=== PATIENT | female | born 1945 | race Caucasian/White ===

== ENCOUNTER 2019-01-09 12:03 | Inpatient (IN) | payer MEDICARE, BC | END 2019-01-12 12:00 | LOC: PAS IN 12:03 → ORTHO 4S 17:30 | PROC: 0SRC0J9 Replacement of Right Knee Joint with Synthetic Substitute, Cemented, Open Approach (ICD-10-PCS; principal; 2019-01-09 13:23) | DX: M17.11 Unilateral primary osteoarthritis, right knee (principal); J45.909 Unspecified asthma, uncomplicated; I10 Essential (primary) hypertension ==

== ENCOUNTER 2019-06-01 05:29 | Inpatient (IN) | payer MEDICARE, BC ==
[2019-05-17 14:19] LABS: BASOPHILS # (AUTO) 0.1 X10'3 (0-0.2); EOSINOPHILS # (AUTO) 0.2 X10'3 (0-0.9); LYMPHOCYTES # (AUTO) 1.1 X10'3 (1.1-4.8); LYMPHOCYTES % (AUTO) 19.9 % (21-51); MEAN CORPUSCULAR HEMOGLOBIN 28.6 PG (27.0-31.0); MEAN CORPUSCULAR HGB CONC 33.3 g/dL (33.0-36.5); MEAN CORPUSCULAR VOLUME 85.7 FL (78-98); MEAN PLATELET VOLUME 7.3 FL (7.4-10.4); MONOCYTES # (AUTO) 0.6 X10'3 (0-0.9); MONOCYTES % (AUTO) 10.7 % (2-12); NEUTROPHILS # (AUTO) 3.7 X10'3 (1.8-7.7); NEUTROPHILS % (AUTO) 65.4 % (42-75); PRE OP HEMATOCRIT 34.4 % (35.0-45.0); PRE OP HEMOGLOBIN 11.5 g/dL (12.0-16.0); PRE OP PLATELET COUNT 311 X10'3 (140-440); RED BLOOD COUNT 4.01 X10'6 (4.20-5.60); RED CELL DISTRIBUTION WIDTH 15.2 % (11.5-14.5)
[2019-05-17 14:33] LABS: PRE OP PROTIME 10.5 SECONDS (9.0-12.0)
[2019-05-17 14:42] LABS: BLOOD UREA NITROGEN 25 MG/DL (7-18); BUN/CREATININE RATIO 25.5 (6.6-38.0); CHLORIDE 95 MMOL/L (99-107); CREATININE 0.98 MG/DL (0.40-0.90); PRE OP ANION GAP 9 (8-16); PRE OP GLUCOSE 92 MG/DL (70-104); PRE OP POTASSIUM 4.8 MMOL/L (3.4-5.1); PRE OP SODIUM 131 MMOL/L (135-145); TOTAL CARBON DIOXIDE 27.4 MMOL/L (24-32)
[2019-05-17 14:43] LABS: ALBUMIN 3.4 G/DL (3.4-5.0); ALBUMIN/GLOBULIN RATIO 1.1 (1.1-1.5); ALKALINE PHOSPHATASE 79 IU/L (46-116); PRE OP ALT 25 U/L (30-65); PRE OP AST 15 U/L (10-37); PRE OP BILIRUB, TOTAL 0.4 MG/DL (0.0-1.0); TOTAL PROTEIN 6.5 G/DL (6.4-8.2); eGFR 56 ML/MIN
[~2019-06-01] VITALS: Ht 162.6 cm; Wt 92.0 kg
[2019-06-01] VITALS (18 sets, daily range): BP systolic 100–150; BP diastolic 39–67
[~2019-06-01 05:29] MED LIST: ALBU8.5H8 INH; ATOR10TA PO; DICL75TA5 PO; ESOM2.5S PO; FEXO180T94 PO; FLUT1DIS4 INH; LEVO75TA7 PO; LISI1TAB28 PO; MONT10TA21 PO
[2019-06-01] MEDS ORDERED: tranexamic acid inj. 1,000 MG in normal saline 100 ML IV ONE (05:30)
[2019-06-01] MEDS ORDERED: vancomycin inj 1,500 MG in normal saline 300ml IV soln IV ONE (05:30)
[2019-06-01] MEDS ORDERED: ringers solution, lacted 1,000 ML IV SCH ×2 (05:30→08:27)
[2019-06-01] MEDS ORDERED: famotidine 20mg tablet PO ONE (05:30)
[2019-06-01] MEDS ORDERED: cefazolin/dext.iso 2gm/50ml 50 ML IV ONE (05:30)
[2019-06-01] MEDS ORDERED: LIDOcaine 1% (10mg/ml) 2ml vial ONE (05:53)
[2019-06-01] MEDS ORDERED: ceFAZolin 1000mg inj ONE (06:34)
[2019-06-01 06:47] LABS: ISTAT CREATININE 1.1 mg/dL (0.6-1.1); ISTAT HGB 12.6 g/dl (12.0-16.0); ISTAT IONIZED CALCIUM 1.23 mmol/L (1.03-1.32); ISTAT K 4.1 mmol/L (3.5-5.1); POC BUN/CREATININE RATIO 29.1 (6.6-38.0)
[2019-06-01] MEDS ORDERED: tetracaine 1% (10mg/ml) pres. free inj. ONE (07:13)
[2019-06-01] MEDS ORDERED: MIDAZolam 1mg/ml 10ml vial ONE (07:16)
[2019-06-01] MEDS ORDERED: fentaNYL/PF 50MCG/1 ML 2ML syringe ONE (07:16)
[2019-06-01] MEDS ORDERED: proCHLORperazine 10 MG/2 ml inj IV PRN (08:30)
[2019-06-01] MEDS ORDERED: meperidine/PF 25mg/ml syringe IV PRN ×3 (08:30)
[2019-06-01] MEDS ORDERED: morphine 4 MG/ML inj SYRINge IV PRN ×2 (08:30)
[2019-06-01] MEDS ORDERED: ondansetron/PF 4mg/2ml inj IV PRN ×2 (08:30→10:15)
[2019-06-01] MEDS ORDERED: propofol inj 20 ML IV ONE ×2 (09:18)
[2019-06-01] MEDS ORDERED: ROPIVAcaine 0.5% (5mg/ml) 30ml vial ONE (09:30)
[2019-06-01] MEDS ORDERED: acetaminophen 325mg tablet PO PRN (10:15)
[2019-06-01] MEDS ORDERED: bisacodyl 10mg suppository rectal RC PRN (10:15)
[2019-06-01] MEDS ORDERED: diphenhydrAMINE 25mg capsule PO PRN ×2 (10:15)
--- NOTE | 2019-06-01 10:17 | NUR ---
Received from OR via , accompanied by Anesthesiologist DR ESCALANTE and report given by Anesthesiolgist. AWAKENS TO VOICE. VITALS STABLE. DRESSING DI. KELLEY PAIN. SENSATION JUST ABOVE THE HIPS/ VARGAS WITH CLEAR URINE.
[2019-06-01] MEDS ORDERED: DICLOFENAC 75 MG PO SCH (10:35)
[2019-06-01] MEDS: ROPIVAcaine 0.2%/PF PAIN PUMP 550 ML IJ SCH (10:43)
--- NOTE | 2019-06-01 11:08 | NUR ---
Patient in room PAS IN 900. I have received report from Oliverio COLVIN and had the opportunity to ask questions and assume patient care.
--- NOTE | 2019-06-01 11:17 | NUR ---
Report called to receiving nurse. Transferred via BED Belongings . Special Issues communicated to receiving nurse. AWAKE AND ORINENTED. VITALS STABLE. DRESSING DI. KELLEY PAIN. TO ORTHO RM 4024A AT THIS TIME.
--- NOTE | 2019-06-01 11:20 | NUR ---
on the floor. normal pulse. post op vitals started. educated on IS device.
[2019-06-01] MEDS: HYDROcodone/acetaminophen 10/325mg tab PO PRN ×3 (12:18→19:10)
[2019-06-01] MEDS: HYDROmorphone inj. 0.5 MG/0.5 ML DISP.SYRIN IV PRN ×2 (13:01→21:24)
[2019-06-01] MEDS: potassium Cl 20mEq in NS 1,000 ML IV SCH ×2 (15:54→23:32)
[2019-06-01] MEDS: ceFAZolin 1GM/D5W- ADD-VANTAGE 50 ML IV SCH ×2 (16:04→23:45)
[2019-06-01] MEDS ORDERED: aspirin 325mg tablet PO SCH (17:30)
[2019-06-01] MEDS: aspirin 81mg tablet.DR PO SCH (17:38)
--- NOTE | 2019-06-01 18:08 | NUR ---
Problems reprioritized. Patient report given, questions answered & plan of care reviewed with Nicolasa RN.
--- NOTE | 2019-06-01 18:20 | NUR ---
Received report from Nick COLVIN. assumed care of patient.
[2019-06-01] MEDS: HYDROchlorothiazide 12.5mg capsule PO SCH (19:11)
[2019-06-01] MEDS ORDERED: vancomycin/NS 1 GM ADD-VANTAGE 250 ML IV SCH (20:00)
[2019-06-01] MEDS: sennosides 8.6mg tablet PO SCH (20:14)
[2019-06-02] MEDS: HYDROcodone/acetaminophen 10/325mg tab PO PRN ×5 (00:51→18:24)
[2019-06-02 02:00] VITALS: BP 116/49
[2019-06-02 06:00] VITALS: BP 127/54
--- NOTE | 2019-06-02 06:10 | NUR ---
Gave report to Nick COLVIN.
--- NOTE | 2019-06-02 06:39 | NUR ---
Patient in room ORTHO 4024. I have received report from Nicolasa COLVIN and had the opportunity to ask questions and assume patient care.
[2019-06-02 06:40] LABS: BASOPHILS % (AUTO) 0.5 % (0-1); EOSINOPHILS % (AUTO) 0.3 % (0-6); HEMATOCRIT 26.5 % (35.0-45.0); HEMOGLOBIN 9.1 g/dl (12.0-16.0); LYMPHOCYTES # (AUTO) 0.8 X10'3 (1.1-4.8); LYMPHOCYTES % (AUTO) 10.5 % (21-51); MEAN CORPUSCULAR HEMOGLOBIN 29.3 PG (27.0-31.0); MEAN CORPUSCULAR HGB CONC 34.3 g/dL (33.0-36.5); MEAN CORPUSCULAR VOLUME 85.3 FL (78-98); MEAN PLATELET VOLUME 7.4 FL (7.4-10.4); MONOCYTES % (AUTO) 13.5 % (2-12); NEUTROPHILS # (AUTO) 5.8 X10'3 (1.8-7.7); NEUTROPHILS % (AUTO) 75.2 % (42-75); PLATELET COUNT 261 X10'3 (140-440); WHITE BLOOD COUNT 7.8 X10'3 (4.5-11.0)
[2019-06-02 06:59] LABS: ALANINE AMINOTRANSFERASE 23 U/L (12-78); ALBUMIN 2.7 G/DL (3.4-5.0); ALBUMIN/GLOBULIN RATIO 0.9 (1.1-1.5); ALKALINE PHOSPHATASE 67 IU/L (46-116); ANION GAP 8 (8-16); ASPARTATE AMINO TRANSFERASE 13 U/L (10-37); BILIRUBIN,TOTAL 0.5 MG/DL (0.1-1.0); BLOOD UREA NITROGEN 14 MG/DL (7-18); BUN/CREATININE RATIO 14.9 (6.6-38.0); CALCIUM 8.8 MG/DL (8.5-10.1); CHLORIDE 102 MMOL/L (99-107); CREATININE 0.94 MG/DL (0.40-0.90); GLUCOSE 115 MG/DL (70-104); POTASSIUM 3.9 MMOL/L (3.5-5.1); SODIUM 137 MMOL/L (135-145); TOTAL CARBON DIOXIDE 26.8 MMOL/L (24-32); TOTAL PROTEIN 5.6 G/DL (6.4-8.2); eGFR 58 ML/MIN
[2019-06-02] MEDS: potassium Cl 20mEq in NS 1,000 ML IV SCH (07:52)
[2019-06-02] MEDS: pantoprazole 40mg Tablet.DR PO SCH (07:53)
[2019-06-02] MEDS: HYDROchlorothiazide 12.5mg capsule PO SCH ×2 (07:53→20:24)
[2019-06-02] MEDS: montelukast 10mg tablet PO SCH (07:53)
[2019-06-02] MEDS: aspirin 81mg tablet.DR PO SCH ×2 (07:53→17:26)
[2019-06-02] MEDS: lisinopril 20mg tablet PO SCH ×2 (07:54→20:24)
[2019-06-02] MEDS: levoTHYROXINE 75mcg tablet PO SCH (07:54)
[2019-06-02 10:00] VITALS: BP 121/53
[2019-06-02] MEDS: magnesium hydroxide 30ml (MOM) UD suspension PO PRN (15:16)
[2019-06-02 18:00] VITALS: BP 121/45
--- NOTE | 2019-06-02 18:06 | NUR ---
Problems reprioritized. Patient report given, questions answered & plan of care reviewed with Nicolasa RN.
--- NOTE | 2019-06-02 18:10 | NUR ---
Received report from Nick COLVIN. assumed care of patient.
[2019-06-02] MEDS: sennosides 8.6mg tablet PO SCH (20:24)
[2019-06-02 22:02] VITALS: BP 124/54
[2019-06-03] MEDS: HYDROcodone/acetaminophen 10/325mg tab PO PRN ×2 (00:10→05:29)
[2019-06-03] MEDS: potassium Cl 20mEq in NS 1,000 ML IV SCH (02:03)
[2019-06-03 06:00] VITALS: BP 136/56
--- NOTE | 2019-06-03 06:20 | NUR ---
Gave report to Nick COLVIN.
--- NOTE | 2019-06-03 06:25 | NUR ---
Patient in room ORTHO 4024. I have received report from Nicolasa COLVIN and had the opportunity to ask questions and assume patient care.
[2019-06-03 06:26] LABS: BASOPHILS # (AUTO) 0.1 X10'3 (0-0.2); BASOPHILS % (AUTO) 0.6 % (0-1); EOSINOPHILS # (AUTO) 0.1 X10'3 (0-0.9); HEMATOCRIT 25.3 % (35.0-45.0); HEMOGLOBIN 8.7 g/dl (12.0-16.0); LYMPHOCYTES # (AUTO) 0.8 X10'3 (1.1-4.8); LYMPHOCYTES % (AUTO) 10.1 % (21-51); MEAN CORPUSCULAR HEMOGLOBIN 29.5 PG (27.0-31.0); MEAN CORPUSCULAR HGB CONC 34.2 g/dL (33.0-36.5); MEAN CORPUSCULAR VOLUME 86.2 FL (78-98); MEAN PLATELET VOLUME 7.7 FL (7.4-10.4); MONOCYTES # (AUTO) 1.1 X10'3 (0-0.9); MONOCYTES % (AUTO) 13.5 % (2-12); NEUTROPHILS # (AUTO) 6.2 X10'3 (1.8-7.7); NEUTROPHILS % (AUTO) 74.8 % (42-75); PLATELET COUNT 240 X10'3 (140-440); RED BLOOD COUNT 2.93 X10'6 (4.20-5.60); RED CELL DISTRIBUTION WIDTH 15.6 % (11.5-14.5); WHITE BLOOD COUNT 8.3 X10'3 (4.5-11.0)
[2019-06-03 06:41] LABS: ALANINE AMINOTRANSFERASE 18 U/L (12-78); ALBUMIN 2.5 G/DL (3.4-5.0); ALBUMIN/GLOBULIN RATIO 0.8 (1.1-1.5); ALKALINE PHOSPHATASE 68 IU/L (46-116); ANION GAP 6 (8-16); ASPARTATE AMINO TRANSFERASE 17 U/L (10-37); BILIRUBIN,TOTAL 0.4 MG/DL (0.1-1.0); BLOOD UREA NITROGEN 10 MG/DL (7-18); BUN/CREATININE RATIO 10.9 (6.6-38.0); CALCIUM 8.6 MG/DL (8.5-10.1); CHLORIDE 101 MMOL/L (99-107); CREATININE 0.92 MG/DL (0.40-0.90); GLUCOSE 106 MG/DL (70-104); POTASSIUM 3.9 MMOL/L (3.5-5.1); SODIUM 137 MMOL/L (135-145); TOTAL CARBON DIOXIDE 30.4 MMOL/L (24-32); TOTAL PROTEIN 5.8 G/DL (6.4-8.2); eGFR 60 ML/MIN
[2019-06-03] MEDS: pantoprazole 40mg Tablet.DR PO SCH (07:22)
[2019-06-03] MEDS: levoTHYROXINE 75mcg tablet PO SCH (07:22)
[2019-06-03] MEDS: aspirin 81mg tablet.DR PO SCH ×2 (07:22→17:01)
[2019-06-03] MEDS: montelukast 10mg tablet PO SCH (07:22)
[2019-06-03] MEDS: HYDROchlorothiazide 12.5mg capsule PO SCH ×2 (07:23→20:23)
[2019-06-03] MEDS: lisinopril 20mg tablet PO SCH ×2 (07:24→20:23)
--- NOTE | 2019-06-03 07:28 | NUR ---
send Ropivacaine ONQ pump please. thank you
[2019-06-03 10:00] VITALS: BP 147/68
[2019-06-03] MEDS: magnesium hydroxide 30ml (MOM) UD suspension PO PRN (10:11)
[2019-06-03] MEDS: ROPIVAcaine 0.2%/PF PAIN PUMP 550 ML IJ SCH (11:44)
[2019-06-03 18:00] VITALS: BP 141/59
--- NOTE | 2019-06-03 18:08 | NUR ---
Problems reprioritized. Patient report given, questions answered & plan of care reviewed with Nicolasa RN.
--- NOTE | 2019-06-03 18:30 | NUR ---
Received report from Nick COLVIN. assumed care of patient.
[2019-06-03] MEDS: sennosides 8.6mg tablet PO SCH (20:23)
[2019-06-03 22:00] VITALS: BP 143/60
[2019-06-04] MEDS: HYDROcodone/acetaminophen 10/325mg tab PO PRN (05:24)
[2019-06-04 06:00] VITALS: BP 150/62
--- NOTE | 2019-06-04 06:16 | NUR ---
Gave report to Babita COLVIN.
[2019-06-04] MEDS: aspirin 81mg tablet.DR PO SCH ×2 (08:34→17:48)
[2019-06-04] MEDS: HYDROchlorothiazide 12.5mg capsule PO SCH ×2 (08:35→19:48)
[2019-06-04] MEDS: pantoprazole 40mg Tablet.DR PO SCH (08:35)
[2019-06-04] MEDS: lisinopril 20mg tablet PO SCH ×2 (08:35→19:48)
[2019-06-04] MEDS: levoTHYROXINE 75mcg tablet PO SCH (08:36)
[2019-06-04] MEDS: montelukast 10mg tablet PO SCH (08:36)
[2019-06-04 09:10] LABS: BASOPHILS % (AUTO) 0.3 % (0-1); EOSINOPHILS % (AUTO) 0.1 % (0-6); HEMATOCRIT 25.9 % (35.0-45.0); HEMOGLOBIN 8.9 g/dl (12.0-16.0); LYMPHOCYTES # (AUTO) 0.7 X10'3 (1.1-4.8); LYMPHOCYTES % (AUTO) 6.7 % (21-51); MEAN CORPUSCULAR HEMOGLOBIN 29.3 PG (27.0-31.0); MEAN CORPUSCULAR HGB CONC 34.4 g/dL (33.0-36.5); MEAN CORPUSCULAR VOLUME 85.3 FL (78-98); MEAN PLATELET VOLUME 7.6 FL (7.4-10.4); MONOCYTES # (AUTO) 0.9 X10'3 (0-0.9); MONOCYTES % (AUTO) 8.8 % (2-12); NEUTROPHILS # (AUTO) 8.8 X10'3 (1.8-7.7); NEUTROPHILS % (AUTO) 84.1 % (42-75); PLATELET COUNT 282 X10'3 (140-440); RED BLOOD COUNT 3.03 X10'6 (4.20-5.60); RED CELL DISTRIBUTION WIDTH 15.3 % (11.5-14.5); WHITE BLOOD COUNT 10.5 X10'3 (4.5-11.0)
[2019-06-04 09:33] LABS: ALANINE AMINOTRANSFERASE 16 U/L (12-78); ALBUMIN 2.3 G/DL (3.4-5.0); ALBUMIN/GLOBULIN RATIO 0.6 (1.1-1.5); ALKALINE PHOSPHATASE 73 IU/L (46-116); ANION GAP 7 (8-16); ASPARTATE AMINO TRANSFERASE 16 U/L (10-37); BLOOD UREA NITROGEN 14 MG/DL (7-18); BUN/CREATININE RATIO 15.1 (6.6-38.0); CALCIUM 8.8 MG/DL (8.5-10.1); CHLORIDE 98 MMOL/L (99-107); CREATININE 0.93 MG/DL (0.40-0.90); GLUCOSE 137 MG/DL (70-104); POTASSIUM 3.6 MMOL/L (3.5-5.1); SODIUM 134 MMOL/L (135-145); TOTAL CARBON DIOXIDE 29.1 MMOL/L (24-32); eGFR 59 ML/MIN
[2019-06-04 10:20] LABS: BILIRUBIN,TOTAL 0.5 MG/DL (0.1-1.0)
[2019-06-04 18:00] VITALS: BP 134/56
[2019-06-04] MEDS: sennosides 8.6mg tablet PO SCH (19:47)
[2019-06-04 22:00] VITALS: BP 133/54
[2019-06-05 06:00] VITALS: BP 148/57
[2019-06-05 07:45] VITALS: BP 105/49
[2019-06-05] MEDS: aspirin 81mg tablet.DR PO SCH (07:45)
[2019-06-05] MEDS: montelukast 10mg tablet PO SCH (07:46)
[2019-06-05] MEDS: pantoprazole 40mg Tablet.DR PO SCH (07:46)
[2019-06-05] MEDS: levoTHYROXINE 75mcg tablet PO SCH (07:46)
[2019-06-05] MEDS: lisinopril 20mg tablet PO SCH (08:00)
[2019-06-05] MEDS: HYDROchlorothiazide 12.5mg capsule PO SCH (08:00)
[2019-06-05 10:00] VITALS: BP 117/51
== END 2019-06-05 13:20 | DRG 470 ==
LOC: PAS IN 05:29 → EDSTATUS 07:30 → ORTHO 4S 11:30
PROVIDERS: ADMIT Orthopaedic Surgery; ATTEND Orthopaedic Surgery
PROC: 3E0T3BZ Introduction of Anesthetic Agent into Peripheral Nerves and Plexi, Percutaneous Approach (ICD-10-PCS; 2019-06-01)
PROC: 0SRD069 Replacement of Left Knee Joint with Oxidized Zirconium on Polyethylene Synthetic Substitute, Cemented, Open Approach (ICD-10-PCS; principal; 2019-06-01 07:18)
DX: M17.12 Unilateral primary osteoarthritis, left knee (principal); D62 Acute posthemorrhagic anemia; I12.9 Hypertensive chronic kidney disease with stage 1 through stage 4 chronic kidney disease, or unspecified chronic kidney disease; N18.3 Chronic kidney disease, stage 3 (moderate); E78.5 Hyperlipidemia, unspecified; E03.9 Hypothyroidism, unspecified; J45.909 Unspecified asthma, uncomplicated; K21.9 Gastro-esophageal reflux disease without esophagitis; G43.909 Migraine, unspecified, not intractable, without status migrainosus; E66.9 Obesity, unspecified; Z68.34 Body mass index [BMI] 34.0-34.9, adult; Z79.899 Other long term (current) drug therapy
CPT/HCPCS: 36415; 80047; 80053; 84443; 85025; 85610; 85730; 86885; 86900; 86901; 86920; 87081; 97110; 97112; 97116; 97162; 97530; A4215; A4618; A6455; A7000; C1713; C1758; C1776; G0378; J0690; J1170; J2001; J2250; J2704; J2795; J3010; J3370; J3480; J7120

== ENCOUNTER 2023-08-20 12:40 | Inpatient (IN) | payer MEDICARE, BC ==
[~2023-08-20] VITALS: Ht 162.6 cm; Wt 109.0 kg
[~2023-08-20 12:40] MED LIST changes: -ALBU8.5H8 INH; +AMLO5TAB16 PO; -ATOR10TA PO; +ATOR10TA70 PO; -DICL75TA5 PO; -ESOM2.5S PO; -FEXO180T94 PO; -FLUT1DIS4 INH; +FURO-150 PO; +HYDR-3965 PO; +LEVO750T68 PO; -LISI1TAB28 PO; +LISI1TAB51 PO; +METR-159 PO; +MONT-47 PO; -MONT10TA21 PO; +PANT40TA54 PO
[2023-08-20 13:56] LABS: BASOPHILS % (AUTO) 0.3 % (0-1); EOSINOPHILS % (AUTO) 0.2 % (0-6); HEMATOCRIT 29.2 % (35.0-45.0); HEMOGLOBIN 9.7 g/dl (12.0-16.0); LYMPHOCYTES % (AUTO) 10.2 % (21-51); MEAN CORPUSCULAR HGB CONC 33.3 g/dL (33.0-36.5); MEAN CORPUSCULAR VOLUME 77.9 FL (78-98); MEAN PLATELET VOLUME 6.6 FL (7.4-10.4); MONOCYTES # (AUTO) 1.5 X10'3 (0-0.9); MONOCYTES % (AUTO) 15.8 % (2-12); NEUTROPHILS # (AUTO) 6.9 X10'3 (1.8-7.7); NEUTROPHILS % (AUTO) 73.5 % (42-75); PLATELET COUNT 550 X10'3 (140-440); RED BLOOD COUNT 3.75 X10'6 (4.20-5.60); RED CELL DISTRIBUTION WIDTH 16.4 % (11.5-14.5); WHITE BLOOD COUNT 9.4 X10'3 (4.5-11.0)
[2023-08-20 14:19] LABS: ALANINE AMINOTRANSFERASE 19 U/L (12-78); ALBUMIN 3.1 G/DL (3.4-5.0); ALBUMIN/GLOBULIN RATIO 0.8 (1.1-1.5); ALKALINE PHOSPHATASE 107 IU/L (46-116); ANION GAP 10 (8-16); ASPARTATE AMINO TRANSFERASE 26 U/L (10-37); BILIRUBIN,TOTAL 0.3 MG/DL (0.1-1.0); BLOOD UREA NITROGEN 23 MG/DL (7-18); BUN/CREATININE RATIO 16.3 (10.0-20.0); CALCIUM 9.3 MG/DL (8.5-10.1); CHLORIDE 90 MMOL/L (99-107); CREATININE 1.41 MG/DL (0.40-0.90); GLUCOSE 138 MG/DL (70-104); POTASSIUM 4.3 MMOL/L (3.5-5.1); PRO BRAIN NATRIURETIC PEPTIDE 198 PG/ML (0-450); SODIUM 124 MMOL/L (135-145); TOTAL CARBON DIOXIDE 24.5 MMOL/L (24-32); TOTAL PROTEIN 7.2 G/DL (6.4-8.2); eCRCL 29 ML/MIN; eGFR 36 ML/MIN
[2023-08-21] MEDS ORDERED: normal saline 1000ml 1,000 ML IV ONE (04:55)
[2023-08-21] MEDS ORDERED: sodium chloride 1gm tablet PO ONE (05:55)
[2023-08-21] MEDS ORDERED: morphine 4 MG/ML inj SYRINge IV ONE (06:45)
[2023-08-21] MEDS ORDERED: potassium Cl 20 mEq SR tablet PO PRN ×2 (08:35)
[2023-08-21] MEDS ORDERED: magnesium hydroxide 30ml (MOM) UD suspension PO PRN (08:35)
[2023-08-21] MEDS ORDERED: acetaminophen 650mg rectal suppository RC PRN (08:35)
[2023-08-21] MEDS ORDERED: magnesium 4gm in 100ml NS 100 ML IV PRN (08:35)
[2023-08-21] MEDS ORDERED: magnesium 2GM in 50ml NS 50 ML IV PRN (08:35)
[2023-08-21] MEDS ORDERED: acetaminophen 325mg tablet PO PRN (08:35)
[2023-08-21] MEDS ORDERED: magnesium Cl slow-release 64mg tablet PO PRN (08:35)
[2023-08-21] MEDS ORDERED: ondansetron/PF 4mg/2ml inj IV PRN (08:35)
[2023-08-21] MEDS ORDERED: ondansetron 4mg rapidly disintigrating tab PO PRN (08:35)
[2023-08-21] MEDS ORDERED: mag hydrox/Alum hydrox/simeth 30ml oral suspension PO PRN (08:35)
[2023-08-21] MEDS ORDERED: potassium Cl 40MEQ/1/2NS 520ml 520 ML IV PRN (08:35)
[2023-08-21] MEDS: normal saline 1000ml 1,000 ML IV SCH ×2 (08:39→19:38)
[2023-08-21 16:05] LABS: BILIRUBIN,URINE NEGATIVE (Neg); CLARITY,URINE CLEAR (Clear); COLOR,URINE STRAW (Yellow); GLUCOSE, URINE NEGATIVE (Neg); KETONES,URINE NEGATIVE (Neg); LEUKOCYTE ESTERASE ,URINE NEGATIVE (Neg); NITRITES, URINE NEGATIVE (Neg); OCCULT BLOOD,URINE NEGATIVE (Neg); OSMOLALITY UA 180 MOSM/K (50-1400); PH,URINE 7.5 (4.8-8.0); PROTEIN,URINE NEGATIVE (Neg); UROBILINOGEN,URINE 0.2 E.U/dL (0.2-1.0)
[2023-08-21 16:11] LABS: SODIUM,URINE RANDOM 35 MEQ/L; TOTAL PROTEIN,URINE RANDOM < 6.0 MG/DL; UA COLLECTION TYPE VOIDED
[2023-08-21] MEDS: acetaminophen 325mg tablet PO PRN (16:26)
[2023-08-21 16:32] LABS: EOSINOPHILS % (AUTO) 0.2 % (0-6); HEMATOCRIT 26.4 % (35.0-45.0); MEAN PLATELET VOLUME 6.5 FL (7.4-10.4); MONOCYTES # (AUTO) 1.5 X10'3 (0-0.9); MONOCYTES % (AUTO) 14.9 % (2-12); PLATELET COUNT 509 X10'3 (140-440); WHITE BLOOD COUNT 10.2 X10'3 (4.5-11.0)
[2023-08-21 16:33] LABS: BASOPHILS % (AUTO) 0.1 % (0-1); HEMOGLOBIN 8.7 g/dl (12.0-16.0); LYMPHOCYTES # (AUTO) 0.9 X10'3 (1.1-4.8); LYMPHOCYTES % (AUTO) 8.9 % (21-51); MEAN CORPUSCULAR HEMOGLOBIN 25.5 PG (27.0-31.0); MEAN CORPUSCULAR HGB CONC 32.9 g/dL (33.0-36.5); MEAN CORPUSCULAR VOLUME 77.4 FL (78-98); NEUTROPHILS # (AUTO) 7.8 X10'3 (1.8-7.7); NEUTROPHILS % (AUTO) 75.9 % (42-75); RED BLOOD COUNT 3.41 X10'6 (4.20-5.60); RED CELL DISTRIBUTION WIDTH 16.6 % (11.5-14.5)
[2023-08-21 16:37] LABS: ALANINE AMINOTRANSFERASE 21 U/L (12-78); ALBUMIN 2.8 G/DL (3.4-5.0); ALBUMIN/GLOBULIN RATIO 0.8 (1.1-1.5); ALKALINE PHOSPHATASE 90 IU/L (46-116); ANION GAP 11 (8-16); ASPARTATE AMINO TRANSFERASE 25 U/L (10-37); BILIRUBIN,TOTAL 0.4 MG/DL (0.1-1.0); BLOOD UREA NITROGEN 24 MG/DL (7-18); BUN/CREATININE RATIO 15.8 (10.0-20.0); CALCIUM 8.8 MG/DL (8.5-10.1); CHLORIDE 97 MMOL/L (99-107); CREATININE 1.52 MG/DL (0.40-0.90); GLUCOSE 131 MG/DL (70-104); MAGNESIUM 1.6 MG/DL (1.5-2.4); POTASSIUM 4.3 MMOL/L (3.5-5.1); SODIUM 130 MMOL/L (135-145); TOTAL CARBON DIOXIDE 21.8 MMOL/L (24-32); TOTAL PROTEIN 6.4 G/DL (6.4-8.2); eCRCL 27 ML/MIN; eGFR 33 ML/MIN
[2023-08-21 17:00] LABS: UA EOSINOPHILS NO EOS /HPF
[2023-08-21 17:19] LABS: ANISOCYTOSIS 1+; MICROCYTOSIS 1+; PLATELET ESTIMATE INCREASED
[2023-08-21 17:21] LABS: HYPOCHROMASIA 1+; SCHISTOCYTES FEW
[2023-08-21 19:05] VITALS: BP 133/55; PULSE 93; RESP 16; TEMP 97.8; O2SAT 100
[2023-08-21 20:00] VITALS: RESP 20; O2SAT 96
[2023-08-21] MEDS ORDERED: enoxaparin 40mg/0.4ml syringe SQ SCH (20:00)
[2023-08-21] MEDS ORDERED: temazepam 15mg capsule PO PRN (21:00)
[2023-08-21 22:00] VITALS: BP 142/50; PULSE 88; RESP 16; TEMP 97.8; O2SAT 100
[2023-08-21] MEDS: docusate sod 100mg capsule PO SCH (22:09)
[2023-08-21] MEDS: K and/or MAG REPLACEMENT MC SCH (22:42)
[2023-08-22] MEDS: normal saline 1000ml 1,000 ML IV SCH (05:01)
[2023-08-22 05:41] LABS: BASOPHILS % (AUTO) 0.4 % (0-1); EOSINOPHILS % (AUTO) 0.5 % (0-6); HEMATOCRIT 23.9 % (35.0-45.0); HEMOGLOBIN 7.8 g/dl (12.0-16.0); LYMPHOCYTES # (AUTO) 1.2 X10'3 (1.1-4.8); LYMPHOCYTES % (AUTO) 17.5 % (21-51); MEAN CORPUSCULAR HEMOGLOBIN 25.2 PG (27.0-31.0); MEAN CORPUSCULAR HGB CONC 32.6 g/dL (33.0-36.5); MEAN CORPUSCULAR VOLUME 77.4 FL (78-98); MEAN PLATELET VOLUME 6.9 FL (7.4-10.4); MONOCYTES # (AUTO) 1.2 X10'3 (0-0.9); NEUTROPHILS # (AUTO) 4.6 X10'3 (1.8-7.7); NEUTROPHILS % (AUTO) 64.6 % (42-75); PLATELET COUNT 439 X10'3 (140-440); RED BLOOD COUNT 3.09 X10'6 (4.20-5.60); RED CELL DISTRIBUTION WIDTH 16.5 % (11.5-14.5); WHITE BLOOD COUNT 7.1 X10'3 (4.5-11.0)
[2023-08-22 06:00] VITALS: BP 128/44; PULSE 82; RESP 16; TEMP 98.4; O2SAT 100
[2023-08-22 06:07] LABS: ALANINE AMINOTRANSFERASE 20 U/L (12-78); ALBUMIN 2.4 G/DL (3.4-5.0); ALBUMIN/GLOBULIN RATIO 0.7 (1.1-1.5); ALKALINE PHOSPHATASE 79 IU/L (46-116); ANION GAP 7 (8-16); ASPARTATE AMINO TRANSFERASE 24 U/L (10-37); BILIRUBIN,TOTAL 0.3 MG/DL (0.1-1.0); BLOOD UREA NITROGEN 20 MG/DL (7-18); BUN/CREATININE RATIO 15.9 (10.0-20.0); CALCIUM 8.5 MG/DL (8.5-10.1); CHLORIDE 101 MMOL/L (99-107); CREATININE 1.26 MG/DL (0.40-0.90); GLUCOSE 100 MG/DL (70-104); MAGNESIUM 1.6 MG/DL (1.5-2.4); POTASSIUM 4.2 MMOL/L (3.5-5.1); SODIUM 134 MMOL/L (135-145); TOTAL CARBON DIOXIDE 25.8 MMOL/L (24-32); eCRCL 32 ML/MIN; eGFR 41 ML/MIN
[2023-08-22] MEDS: K and/or MAG REPLACEMENT MC SCH (07:02)
[2023-08-22 07:18] LABS: PLATELET ESTIMATE NORMAL
[2023-08-22 07:20] LABS: ANISOCYTOSIS 1+; HYPOCHROMASIA 1+; MICROCYTOSIS 1+; POLYCHROMASIA 1+
[2023-08-22 07:21] LABS: ELLIPTOCYTES FEW; SCHISTOCYTES FEW
[2023-08-22 07:30] VITALS: RESP 16; O2SAT 100
[2023-08-22] MEDS: docusate sod 100mg capsule PO SCH (08:39)
[2023-08-22] MEDS: acetaminophen 325mg tablet PO PRN (08:44)
[2023-08-22 10:00] VITALS: BP 148/52; PULSE 79; RESP 16; TEMP 97.1; O2SAT 100
[2023-08-22] MEDS ORDERED: LISI20TA28 PO (11:18)
== END 2023-08-22 12:30 | disposition home or self-care (01) | DRG 640 ==
LOC: ER 12:40 → ED HOLD 08-21 08:36 → ORTHO 4S 08-21 19:03
PROVIDERS: ADMIT Family Medicine; ATTEND Family Medicine
DX: E87.1 Hypo-osmolality and hyponatremia (principal); N17.0 Acute kidney failure with tubular necrosis; E03.9 Hypothyroidism, unspecified; I12.9 Hypertensive chronic kidney disease with stage 1 through stage 4 chronic kidney disease, or unspecified chronic kidney disease; N18.9 Chronic kidney disease, unspecified; J45.909 Unspecified asthma, uncomplicated; K21.9 Gastro-esophageal reflux disease without esophagitis; M19.90 Unspecified osteoarthritis, unspecified site; G43.909 Migraine, unspecified, not intractable, without status migrainosus; E78.5 Hyperlipidemia, unspecified; Z20.822 Contact with and (suspected) exposure to COVID-19; K57.90 Diverticulosis of intestine, part unspecified, without perforation or abscess without bleeding; Z85.820 Personal history of malignant melanoma of skin; Z88.0 Allergy status to penicillin; Z88.1 Allergy status to other antibiotic agents; Z88.6 Allergy status to analgesic agent; Z88.8 Allergy status to other drugs, medicaments and biological substances; Z90.710 Acquired absence of both cervix and uterus; Z90.49 Acquired absence of other specified parts of digestive tract; Z79.899 Other long term (current) drug therapy; R10.32 Left lower quadrant pain
CPT/HCPCS: 36415; 74176; 80053; 81003; 82570; 83735; 83880; 83935; 84133; 84145; 84156; 84300; 84484; 85008; 85025; 87081; 87207; 87502; 87503; 87811; 96374; 99285; G0378; J1650; J2270; J7030